=== PATIENT | male | born 1995 | race Caucasian/White ===

== ENCOUNTER 2017-02-02 22:10 | Emergency (ER) | payer MEDICAID ==
[~2017-02-02] VITALS: Ht 172.7 cm; Wt 90.7 kg
[2017-02-02 22:14] VITALS: BP 125/84
--- NOTE | 2017-02-02 23:02 | NUR ---
PT TAKEN TO BED 7
--- NOTE | 2017-02-02 23:04 | NUR ---
Dr. Ybarra evaluating patient at bedside.
--- NOTE | 2017-02-02 23:05 | NUR ---
21 Y/O M W/C/O N/V X TODAY. DENIES ANY ABD PAIN, DIARRHEA OR FEVER. ER MADE AWARE.
[2017-02-02 23:10] VITALS: BP 125/84
--- NOTE | 2017-02-02 23:10 | NUR ---
Patient discharged BY DR VELASQUEZ with v/s stable. Written and verbal after care instructions given and explained BY ER MD. Patient verbalized understanding. Ambulatory with steady gait. All questions addressed prior to discharge. Advised to follow up with PMD OR RETURN TO ER IF CONDITION WORSENS.
== END 2017-02-02 23:10 | disposition home or self-care (01) ==
LOC: MED 22:10
DX: R10.84 Generalized abdominal pain (principal); R03.0 Elevated blood-pressure reading, without diagnosis of hypertension; Z88.6 Allergy status to analgesic agent
CPT/HCPCS: 99281

== ENCOUNTER 2017-03-14 23:35 | Emergency (ER) | payer MEDICAID ==
[~2017-03-14] VITALS: Ht 172.7 cm; Wt 93.7 kg
[2017-03-14 23:49] VITALS: BP 127/61
--- NOTE | 2017-03-15 00:43 | NUR ---
PATIENT TO BED 6 AT THIS TIME.
--- NOTE | 2017-03-15 00:48 | NUR ---
21 Y/O M W/C/O REQUESTING CLEARANCE FOR HIM TO GO BACK TO WORK. PT STATES HAD TO LEAVE EARLY WORK ON SUNDAY FROM WORK BECAUSE HE WAS VOMITING. PT STATES HE HAS VOMIT X YESTERDAY, AND HAS NO PAIN, BUT HIS JOB REQUEST A DR PRESTON FOR HIM TO GO BACK TO WORK. NO S/S OF DISTRESS OR PAIN NOTED. ER MD MADE AWARE.
[2017-03-15 01:27] VITALS: BP 127/61
--- NOTE | 2017-03-15 01:27 | NUR ---
Patient discharged with v/s stable. Written and verbal after care instructions given and explained. Patient verbalized understanding. Ambulatory with steady gait. All questions addressed prior to discharge. Advised to follow up with PMD. PER ER MD PT OK TO RETURN TO WORK. WORK NOTE GIVEN TO PT ON D/C.
== END 2017-03-15 01:27 | disposition home or self-care (01) ==
LOC: MED 23:35
DX: Z00.00 Encounter for general adult medical examination without abnormal findings (principal); R11.10 Vomiting, unspecified; R03.0 Elevated blood-pressure reading, without diagnosis of hypertension
CPT/HCPCS: 99283

== ENCOUNTER 2017-10-02 09:10 | Emergency (ER) | payer MEDICAID ==
[~2017-10-02] VITALS: Ht 177.8 cm; Wt 93.0 kg
[2017-10-02 09:54] VITALS: BP 124/66
--- NOTE | 2017-10-02 10:08 | NUR ---
PT [id number] WITH EVEN AND STEADY GAIT; PT TO LOBBY AWAITING OPEN BED.
--- NOTE | 2017-10-02 13:23 | NUR ---
PATIENT LEFT WITHOUT BEING SEEN BY DR. BAUM. NO FURTHER CARE PROVIDED FOR PATIENT.
== END 2017-10-02 13:45 | disposition left against medical advice (07) ==
LOC: MED 09:10
DX: R05 Cough (principal); Z53.21 Procedure and treatment not carried out due to patient leaving prior to being seen by health care provider
CPT/HCPCS: 93005; 99281